=== PATIENT | female | born 1985 | race Caucasian/White ===

== ENCOUNTER 2016-03-28 07:10 | Inpatient (IN) | payer OTHER ==
[2016-03-28] MEDS ORDERED: OXYTOCIN/DEXTROSE 5%-WATER 30 UNITS/500 ML BAG IV ONE (08:27)
[2016-03-28] MEDS ORDERED: RINGERS SOLUTION,LACTATED 1,000 ML IV ONE (08:27)
[2016-03-28] MEDS ORDERED: LIDOCAINE HCL 50 ML VIAL PERI PRN (08:27)
[2016-03-28] MEDS: RINGERS SOLUTION,LACTATED 1,000 ML IV PRN ×2 (09:05→20:00)
--- NOTE | 2016-03-28 11:31 | PN ---
Progess Note - Interim Narrative: 03/28/16 11:28 Subjective-starting to feel her contractions Objective- SVE- /-2, amniotomy performed with clear fluid FHTs- 130s, moderate variability, no decelerations, accelerations [place]- every 2 minutes Assessment and plan- Labor-induction with Pitocin with amniotomy heart tones-Category 1 GBS status-negative Continue current plan of care.
[2016-03-28] MEDS ORDERED: fentaNYL CITRATE/PF 50 MCG/ML AMPUL IT SCH (11:45)
--- NOTE | 2016-03-28 12:16 | OR ---
Anesthesia Pre Procedure Eval Date of Service: 03/28/16 Pre Procedure Evaluation: Anesthesia Pre Procedure Evaluation DATE: 03/28/2016 TIME: 1140 INDICATIONS: Active labor, labor pain PAST MEDICAL HISTORY: Multipara patient in active labor requesting labor analgesia. The patient is at 4 cm dilatation and membranes are ruptured. EXAM: Heart regular; lungs clear ASSESSMENT OF MEDICAL STATUS: Appropriate candidate for labor analgesia PLANNED PROCEDURE: Combination spinal epidural for labor analgesia Home Medications: HOME MEDICATIONS Metformin HCl 500 mg PO BID 03/28/16 [Last Taken Unknown] Gll996/FA/Omega3/Dha/Fish Oil [ Gummies] 1 each PO DAILY 03/28/16 [Last Taken Unknown] Valacyclovir HCl [Valtrex] 1,000 mg PO DAILY 03/28/16 [Last Taken Unknown]
--- NOTE | 2016-03-28 12:18 | OR ---
Anesthesia Procedure Note - Anesthesia Procedure Note Date of Service: 03/28/16 Narrative: 03/28/16 12:16 ANESTHESIA PROCEDURE NOTE Date of Procedure: 03/28/2016 Time of procedure: 1140. Performed by: VY Louise CRNA, MSN Cane Splicer: Faiza Rivera RN. Preprocedure diagnosis: Active labor, labor pain. Post procedure diagnosis: Same. Procedure: Labor Epidural Placement L3 4. Indications: Labor pain. Findings: See below. Details of the procedure: The patient was placed on the side of the bed in sitting position. The patient was prepped with DuraPrep and draped in a sterile fashion. Lidocaine 1% was infiltrated to the skin and subcutaneous tissues at the level of the L3 4 interspace. The epidural space was identified using a 18-gauge Tuohy needle with [id number] technique. Fentanyl 20 g was given intrathecally the intrathecal needle was then removed and the epidural catheter was threaded approximately 4 cm, the epidural needle was then removed, and after careful aspiration 3 mL of 1.5% lidocaine with 1-200,000 epinephrine was injected without change in maternal heart rate or sensorium. The catheter was then taped in place. EBL: Minimal. Fluids: N/A. Specimen: N/A. Post procedure condition: The patient tolerated the procedure well with good relief. No complications were noted. Thank you for this consultation. Junior Lema CRNA, ARNP, MSN
[2016-03-28] MEDS ORDERED: BUPIVACAINE HCL/0.9 % NACL/PF 250 ML EP PRN ×2 (12:32→21:06)
[2016-03-28] MEDS: BUPIVACAINE HCL/0.9 % NACL/PF 250 ML EP PRN ×2 (12:43→21:10)
--- NOTE | 2016-03-28 18:18 | PN ---
Progess Note - Interim Narrative: 03/28/16 18:16 Subjective-patient now comfortable after 2 boluses with her epidural feels pressure in the lower abdomen and back pain Objective- SVE- 7-/-2, [place] balloon below head and this was advanced above his head with good return of urine FHTs- 140s, moderate variability, accelerations, no decelerations [place]- every 2-3 minutes Assessment and plan- Labor-induction with Pitocin and amniotomy heart tones-Category 1 GBS status-negative Previous gestational diabetes: Blood sugars all within normal limits, continue to monitor closely Continue current plan of care.
--- NOTE | 2016-03-29 00:31 | PN ---
Progess Note - Interim Narrative: 03/29/16 00:23 Subjective- feels pressure and back pain, epidural working from lower abdomen down Objective- SVE- anterior/right lip/95/0 FHTs- 145's, mod nick, no decels, + accels [place]- every 2-3 min Assessment and plan- Labor- induction with Pitocin, Amniotomy, protracted labor, small cervical lip remains with pushing and reduces, baby descends to +1, but then returns to original station, trial of tummy time and increase pitocin, then will try pushing again LGA-assessed weight smaller then last baby, ~8.5 lbs, will have a low threshold for section and will not attempt operative vaginal delivery heart tones-Category I GBS status- negative Pre-gestational DM-BS all WNL, continue to monitor 03/29/16 00:28
[2016-03-29] MEDS ORDERED: ONDANSETRON HCL/PF 2 MG/ML VIAL IV ONE ×2 (02:40→02:43)
[2016-03-29] MEDS ORDERED: BISACODYL 10 MG SUPP.RECT RC PRN (02:43)
[2016-03-29] MEDS ORDERED: OXYTOCIN/DEXTROSE 5%-WATER 30 UNITS/500 ML BAG IV ONE (02:43)
[2016-03-29] MEDS ORDERED: SENNOSIDES 8.6 MG TABLET PO PRN (02:43)
[2016-03-29] MEDS ORDERED: BENZOCAINE/MENTHOL 81 SPRAY CAN TP PRN (02:43)
[2016-03-29] MEDS ORDERED: oxyCODONE HCL/ACETAMINOPHEN 1 TAB TABLET PO PRN ×2 (02:43)
[2016-03-29] MEDS ORDERED: GLYCERIN/WITCH HAZEL LEAF 40 APPL BOX TP PRN (02:43)
--- NOTE | 2016-03-29 03:01 | OR ---
Operative Report - Dictated Report Narrative: Spontaneous Vaginal Delivery with 50 second shoulder dystocia Viable male delivered at 0222. She pushed for approximately 1.5 hours with good descent with the first push and then baby would send back to 0 station in between contractions. She spontaneously pushed to +3 station and with tug-of-war she pushed to . After delivery of the head in direct OA presentation a loose nuchal cord was noted and this was reduced. The head and chin were tightly applied to the perineum. Gentle downward traction did not deliver the anterior shoulder. Trice maneuver was then performed and the shoulder again did not deliver. The shoulder was then palpated and they were noted to be transverse Wood screw maneuver was then performed and the shoulder easily rotated to anterior posterior position. Suprapubic pressure was then applied along with Trice maneuver and gentle downward traction on shoulder delivered the left anterior shoulder without difficulty followed by the posterior shoulder and the remainder of the baby. The babies was placed on the maternal abdomen and dried and stimulated. The cord was then clamped and cut at approximately 30 seconds and the baby taken to the warmer. Apgars were 7 at 1 minute and 8 at 5 minutes. Weight: 8 pounds 10.6 ounces or 3931 g Placenta was delivered spontaneously and intact. No lacerations were noted. Estimated blood loss: 200 ml Mother and baby tolerated delivery well.
--- NOTE | 2016-03-29 03:03 | OR ---
History for MU Definition: * The number of deliveries resulting in a live the patient experienced prior to current hospitalization * The previous delivery of live twins or any live multiple gestation is considered one live event. *If primagravida or nulliparous is documented select zero for the number of previous live births. Live Events: 2
[2016-03-29] MEDS: IBUPROFEN 800 MG TABLET PO PRN ×3 (03:19→21:32)
--- NOTE | 2016-03-29 10:52 | PN ---
Progess Note - Interim Narrative: 03/29/16 10:52 progress note Subjective: The patient is doing well. She is ambulating, voiding, tolerating by mouth. She has minimal pain and moderate lochia. Objective: General: No acute distress Abdomen: Soft, nontender, fundus is firm just below the umbilicus Extremities: minimal edema, nontender to palpation Assessment and plan: day 0 Feeding: Breast Pain: Controlled with by mouth medication Routine care.
[2016-03-29] MEDS: DOCUSATE SODIUM 100 MG CAPSULE PO SCH ×2 (11:28→21:32)
[2016-03-29] MEDS ORDERED: RHO(D) IMMUNE GLOBULIN 300 MCG DISP.SYRIN IM ONE (21:39)
[2016-03-30] MEDS: IBUPROFEN 800 MG TABLET PO PRN (03:41)
[2016-03-30] MEDS: DOCUSATE SODIUM 100 MG CAPSULE PO SCH (08:47)
[2016-03-30 11:36] VITALS: BP 127/83
--- NOTE | 2016-03-30 12:46 | PN ---
Progess Note - Interim Narrative: 03/30/16 12:45 progress note Subjective: The patient is doing well. She is ambulating, voiding, tolerating by mouth. She has minimal pain and moderate lochia. Objective: General: No acute distress Abdomen: Soft, nontender, fundus is firm just below the umbilicus Extremities: minimal edema, nontender to palpation Assessment and plan: day 1 Feeding: Breast Pain: Controlled with by mouth medication control: Mini pill Routine care.
== END 2016-03-30 17:30 | disposition home or self-care (01) | DRG 774 ==
LOC: OB 07:10 → MS 03-30 13:01
PROVIDERS: ADMIT Obstetrics & Gynecology Gynecologic Oncology; ATTEND Obstetrics & Gynecology Gynecologic Oncology
PROC: 10E0XZZ Delivery of Products of Conception, External Approach (ICD-10-PCS; principal; 2016-03-29)
PROC: 4A1HXCZ Monitoring of Products of Conception, Cardiac Rate, External Approach (ICD-10-PCS; 2016-03-29)
PROC: 10907ZC Drainage of Amniotic Fluid, Therapeutic from Products of Conception, Via Natural or Artificial Opening (ICD-10-PCS; 2016-03-29)
PROC: 3E033VJ Introduction of Other Hormone into Peripheral Vein, Percutaneous Approach (ICD-10-PCS; 2016-03-29)
PROC: 3E0S3CZ (ICD-10-PCS; 2016-03-29)
DX: O24.425 Gestational diabetes mellitus in childbirth, controlled by oral hypoglycemic drugs (principal); O98.32 Other infections with a predominantly sexual mode of transmission complicating childbirth; O66.0 Obstructed labor due to shoulder dystocia; O69.81X0 Labor and delivery complicated by cord around neck, without compression, not applicable or unspecified; A60.04 Herpesviral vulvovaginitis; Z79.899 Other long term (current) drug therapy; Z3A.39 39 weeks gestation of pregnancy; Z37.0 Single live birth
CPT/HCPCS: 59025; 59400; 85460; J2790

== ENCOUNTER 2018-06-26 11:25 | Inpatient (IN) ==
[2018-06-26 12:21] LABS: Hematocrit 35.8 % (37.0-47.0); Hemoglobin 11.8 gm/dL (12.5-16.0); Mean Cell Volume 90.2 fl (78-100); Mean Corpuscular Hemoglobin 29.7 pg (27-31); Mean Platelet Volume 9.9 fl (8-12.5); Neutrophil # 7.4 K/mm3 (1.3-6.0); Neutrophil % 70.8 % (42-75.0); Platelet Count 208 K/mm3 (150-450); Red Blood Count 3.97 M/mm3 (4.2-5.4); Red Cell Distribution Width 12.6 % (11.5-14.0); White Blood Count 10.4 K/mm3 (4.0-10.5)
[2018-06-26 12:28] LABS: Albumin * 2.6 gm/dl (3.4-5.0); BUN/Creatinine Ratio 14.8 (9.0-21.6); Bilirubin, Total 0.3 mg/dL (0.0-1.1); Ca. Corrected For Albumin 9.2 mg/dL (8.4-10.2); Calcium * 8.4 mg/dL (7.9-10.9); Carbon Dioxide 23.6 mmol/L (24-32.6); Potassium 3.6 mmol/L (3.4-4.6); Total Protein 6.8 gm/dL (6.2-8.2)
[2018-06-26 12:49] LABS: Random Urine Total Protein 7.1 mg/dL (0-12)
[2018-06-26] MEDS ORDERED: OXYTOCIN/DEXTROSE 5%-WATER 30 UNITS/500 ML BAG IV ONE (13:56)
[2018-06-26] MEDS ORDERED: RINGER'S SOLUTION,LACTATED 1,000 ML IV ONE (13:56)
[2018-06-26] MEDS ORDERED: PENICILLIN G POTASSIUM 5 MILLIONUNT in DEXTROSE 5 % IN WATER 100 ML IV ONE ×2 (13:56)
[2018-06-26] MEDS ORDERED: DEXTROSE 5%-LACTATED RINGERS 1,000 ML IV PRN (13:56)
[2018-06-26 15:29] LABS: Cocaine Ur Negative (NEGATIVE); Urine Barbiturate Negative (NEGATIVE); Urine Benzodiazepines Negative (NEGATIVE); Urine Opiates Negative (NEGATIVE); Urine PCP Negative (NEGATIVE); Urine THC Negative (NEGATIVE)
[2018-06-26] MEDS: PENICILLIN G POTASSIUM 2.5 MILLIONUNT in DEXTROSE 5 % IN WATER 100 ML IV SCH ×4 (17:52→20:05)
--- NOTE | 2018-06-26 18:09 | HP ---
Chief Complaint - Chief Complaint Date of Service: 06/26/18 Time of Service: 18:09 Chief Complaint: contractions, elevated blood pressures History of Present Illness: 32 yo at 38 wks presents to L&D complaining of contractions of incre asing frequency and intensity since around 0400 this am. This complicated by anemia, DM - oral agent controlled, HSV- no outbreaks, h/o MRSA, h/o shoulder dystocia, CHTN, GBS carrier, and obesity. 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 3929g - <50sec with no complications HSV antigen DIF positive (Chronic) History of gestational diabetes (Chronic) Amenorrhea Onset Date: 03/14/14 Anemia Onset Date: 04/17/18 Dry scalp Onset Date: 04/29/14 Possible psoriasis. Trial w/steroid oil. Hirsutism Onset Date: 03/15/14 Hypertension Onset Date: 04/29/14 Appears more diastolic which could be a sleep related issue. Trial wit SR kit first (sample given). If not improved, consider atenolol. Irregular periods Onset Date: 03/14/14 Obesity Onset Date: Unknown PCOS (polycystic ovarian syndrome) Onset Date: 03/15/14 Pregestational diabetes mellitus, modified White class B Onset Date: 02/25/16 Snoring Onset Date: 04/29/14 Trial w/SR kit. Improving this could help the HTN. Wears glasses Onset Date: Unknown Ectopic Onset Date: 07/29/17 w/methotrexate x1 dose Gestational diabetes Onset Date: ~2015 Large for gestational age fetus affecting management of mother Onset Date: 03/02/16 Large for gestational age fetus affecting management of mother Onset Date: 03/02/16 Genital herpes in women Onset Date: Unknown Surgical History: Surgical History (Last Reviewed 06/26/18 @ 18:32 by Darrell Ramos DO) No pertinent past surgical history Family History: Family History (Last Reviewed 06/26/18 @ 18:32 by Darrell Ramos DO) Brother Lupus Father Hypertension Skin cancer Grandfather Skin cancer Colon polyps Grandfather Cerebral aneurysm Grandmother CAD (coronary artery disease) w/stent Grandmother History of Blood Clots Glaucoma Mother Cervical cancer Benign tumor Left side of head Sister Hypertension Uncle Colon cancer Social History: Preferred Language Turkmen Smoking Status Never smoker Abuse History No History of abuse Psych History No pertinent hx (Last Updated 06/26/18 @ 11:23 by Darrell Ramos DO) No Social History Section defined Review Of Systems (GEN) - Review of Systems Generalized/Overall Review: Present: No Symptoms Reported EENTM: Present: No Symptoms Reported Respiratory: Present: No Symptoms Reported Cardiac: Present: No Symptoms Reported Abdominal: Present: No Symptoms Reported Genitourinary: Present: No Symptoms Reported Musculoskeletal: Present: No Symptoms Reported Neurological: Present: No Symptoms Reported Skin: Present: No Symptoms Reported Endocrine: Present: No Symptoms Reported Allergies/Adverse Reactions: Allergies Allergy/AdvReac Type Severity Reaction Status Date / Time No Known Allergies Allergy Verified 06/26/18 10:49 Home Medications: HOME MEDICATIONS Ksl446/FA/Omega3/Dha/Fish Oil [ Gummies] 1 ea PO DAILY 03/28/16 [Last Taken Unknown] folic acid 800 mcg tablet 800 mcg PO DAILY 11/08/17 [Last Taken Unknown] acetone (urine) test strips See Dose Instructions .ROUTE .MEDSUPPLY #50 ea 01/18/18 [Last Taken Unknown] blood-glucose meter kit See Dose Instructions .ROUTE .MEDSUPPLY #1 ea 01/18/18 [Last Taken Unknown] lancets See Dose Instructions .ROUTE .MEDSUPPLY #100 ea 01/18/18 [Last Taken Unknown] blood sugar diagnostic strips See Dose Instructions .ROUTE .MEDSUPPLY #100 ea 02/14/18 [Last Taken Unknown] ferrous sulfate 325 mg (65 mg iron) tablet 325 mg PO DAILY #30 tab 04/17/18 [Last Taken Unknown] ascorbic acid (vitamin C) 500 mg tablet 500 mg PO DAILY 05/02/18 [Last Taken Unknown] valacyclovir 1 gram tablet 1,000 mg PO DAILY #30 tab 05/29/18 [Last Taken Unknown] metFORMIN HCL [Metformin HCl] 500 mg PO DAILY 06/26/18 [Last Taken Unknown] Exam - Exam Vital Signs: Vital Signs - Last Taken Temp 36.8 C 06/26/18 12:11 Pulse 88 06/26/18 12:11 Resp 18 06/26/18 12:11 BP 142/91 H 06/26/18 12:11 Pulse Ox 97 06/26/18 12:11 Constitutional: Present: Alert, Oriented x3, Cooperative, No distress ENT Exam: Present: hearing grossly normal Breasts: Present: Exam deferred Respiratory: Present: lungs clear, no respiratory distress Cardiovascular/Chest: Present: regular rate, rhythm, no edema Abdomen: Present: soft, no rebound tenderness, other - gravid /Rectal: Present: Other - 3/60/-2 Extremity: Present: no pedal edema, no calf tenderness Skin Exam: Present: normal color, warm/dry, skin rash Neurologic: Present: alert, normal mood/affect, oriented x 3 Appearance: Present: appropriate appearance, appropriate insight Eye contact: Present: cooperative, good eye contact Thoughts: Present: normal thought pattern, no apparent hallucination Diagnostic Studies: Abnormal Lab Results 06/26/18 06/26/18 06/26/18 Range/Units 12:00 12:00 12:00 RBC 3.97 L (4.2-5.4) M/mm3 Hgb 11.8 L (12.5-16.0) gm/dL Hct 35.8 L (37.0-47.0) % Immature Gran % (Auto) 0.70 H (0.001-0.429) % Immature Gran # (Auto) 0.07 H (0.000-0.0310) K/mm3 Neutrophils # 7.4 H (1.3-6.0) K/mm3 Carbon Dioxide 23.6 L (24-32.6) mmol/L Anion Gap 15.0 H (6.8-13.8) mmol/L Est GFR (Non-Af Amer) 140 H (60-130) mL/min ALT 13 L (19-67) U/L Albumin 2.6 L (3.4-5.0) gm/dl Ur Random Creatinine 27.3 L (60-200) mg/dL U Pre[place] Prot/Creat Ratio 260 H (0-199) mg/gm Laboratory Results WBC 10.4 K/mm3 (4.0-10.5) 06/26/18 12:00 RBC 3.97 M/mm3 (4.2-5.4) L 06/26/18 12:00 Hgb 11.8 gm/dL (12.5-16.0) L 06/26/18 12:00 Hct 35.8 % (37.0-47.0) L 06/26/18 12:00 MCV 90.2 fl (78-100) 06/26/18 12:00 MCH 29.7 pg (27-31) 06/26/18 12:00 MCHC 33.0 g/dl (32-36) 06/26/18 12:00 RDW 12.6 % (11.5-14.0) 06/26/18 12:00 Plt Count 208 K/mm3 (150-450) 06/26/18 12:00 MPV 9.9 fl (8-12.5) 06/26/18 12:00 Immature Gran % (Auto) 0.70 % (0.001-0.429) H 06/26/18 12:00 Immature Gran # (Auto) 0.07 K/mm3 (0.000-0.0310) H 06/26/18 12:00 Neutrophils % 70.8 % (42-75.0) 06/26/18 12:00 Lymphocytes % 21.7 % (20-51) 06/26/18 12:00 Monocytes % 6.2 % (0.0-9) 06/26/18 12:00 Eosinophils % 0.3 % (0.0-3.0) 06/26/18 12:00 Basophils % 0.3 % (0.0-1.0) 06/26/18 12:00 Nucleated RBC % 0.0 k/mm3 (0-1) 06/26/18 12:00 Neutrophils # 7.4 K/mm3 (1.3-6.0) H 06/26/18 12:00 Lymphocytes # 2.25 k/mm3 (1.5-3.5) 06/26/18 12:00 Monocytes # 0.6 k/mm3 (0.0-1.0) 06/26/18 12:00 Eosinophils # 0.0 k/mm3 (0.0-0.7) 06/26/18 12:00 Absolute Basophils 0.0 k/mm3 (0.0-0.1) 06/26/18 12:00 Sodium 137 mmol/L (132-142) 06/26/18 12:00 Plasma Sodium 137 mmol/L (130-142) 06/26/18 12:00 Potassium 3.6 mmol/L (3.4-4.6) 06/26/18 12:00 Chloride 102 mmol/L (97-106) 06/26/18 12:00 Carbon Dioxide 23.6 mmol/L (24-32.6) L 06/26/18 12:00 Anion Gap 15.0 mmol/L (6.8-13.8) H 06/26/18 12:00 BUN 8 mg/dL (3-23) 06/26/18 12:00 Creatinine 0.54 mg/dL (0.4-1.4) 06/26/18 12:00 Est GFR (Non-Af Amer) 140 mL/min (60-130) H 06/26/18 12:00 BUN/Creatinine Ratio 14.8 (9.0-21.6) 06/26/18 12:00 Random Glucose 78 mg/dL (70-110) 06/26/18 12:00 Calcium 8.4 mg/dL (7.9-10.9) 06/26/18 12:00 Calcium Adj for Albumin 9.2 mg/dL (8.4-10.2) 06/26/18 12:00 Total Bilirubin 0.3 mg/dL (0.0-1.1) 06/26/18 12:00 AST 16 U/L (0-48) 06/26/18 12:00 ALT 13 U/L (19-67) L 06/26/18 12:00 Alkaline Phosphatase 129 U/L (50-170) 06/26/18 12:00 Total Protein 6.8 gm/dL (6.2-8.2) 06/26/18 12:00 Albumin 2.6 gm/dl (3.4-5.0) L 06/26/18 12:00 Ur Random Creatinine 27.3 mg/dL (60-200) L 06/26/18 12:00 U Random Total Protein 7.1 mg/dL (0-12) 06/26/18 12:00 U Preemption Prot/Creat Ratio 260 mg/gm (0-199) H 06/26/18 12:00 Urine Opiates Screen Negative (NEGATIVE) 06/26/18 12:00 Barbiturate Screen Negative (NEGATIVE) 06/26/18 12:00 Ur Phencyclidine Scrn Negative (NEGATIVE) 06/26/18 12:00 Urine Amphetamine Negative (NEGATIVE) 06/26/18 12:00 U Benzodiazepines Scrn Negative (NEGATIVE) 06/26/18 12:00 Urine Cocaine Screen Negative (NEGATIVE) 06/26/18 12:00 Urine Marijuana (THC) Negative (NEGATIVE) 06/26/18 12:00
--- NOTE | 2018-06-26 18:13 | PN ---
Progess Note - Interim Date: 06/26/18 Time: 18:10 Narrative: 06/26/18 18:10 Patient becoming more uncomfortable with contractions Vital signs stable. BS 90 Receiving second dose of IV penicillin FHT: 140 baseline, [reassuring] Contractions q 2-4 min Cervix: 4/60/-3, AROM-clear Impression: Intrauterine at 38 weeks in early labor with chronic hypertension and diabetes on oral medication for control. GBS carrier Plan: We'll add Pitocin if necessary. Epidural when necessary. Preeclampsia precautions. Continue monitoring blood sugars every 2 hours throughout labor
[2018-06-26] MEDS ORDERED: BUPIVACAINE HCL/0.9 % NACL/PF 250 ML EP PRN (18:31)
[2018-06-26] MEDS ORDERED: NALOXONE HCL 1 MG/1 ML SYRG IV PRN (18:31)
[2018-06-26] MEDS ORDERED: ONDANSETRON HCL/PF 2 MG/ML VIAL IV PRN (18:31)
[2018-06-26] MEDS ORDERED: LIDOCAINE HCL/EPINEPHRINE 20 ML VIAL IJ ONE (18:32)
[2018-06-26] MEDS ORDERED: fentaNYL CITRATE/PF 50 MCG/ML AMPUL IT SCH (18:45)
--- NOTE | 2018-06-26 20:21 | ANES ---
Anesthesia Procedure Note Procedure Note: ANESTHESIA PROCEDURE NOTE Date of Procedure: 06/26/2018 Time of procedure: 1950. Performed by: Milton Lopez CRNA Engine Dispatcher: None. Preprocedure diagnosis: Active labor. Post procedure diagnosis: Same. Procedure: Insertion of labor epidural. Indications: The patient is a 32-year-old multi female in active labor requesting labor epidural for pain management. Findings: See below. Details of the procedure: The patient was placed in a sitting position. Back was prepped with DuraPrep. Patient was then draped in a sterile fashion. Lidocaine 1% was infiltrated to the skin and subcutaneous tissues at the level of the L3 4 interspace. The epidural space was identified using a 18-gauge Tuohy needle with [id number] technique. 20 mcg fentanyl was given intrathecally using a 27 ga. spinal needle. Epidural catheter was inserted without difficulty. Negative test dose was elicited using 3 mL of 2% preservative-free lidocaine plus epinephrine 1 200,000. The epidural catheter was then taped and secured in place. EBL: Minimal. Fluids: N/A. Specimen: N/A. Post procedure condition: The patient tolerated the procedure well. No complications were noted. Thank you for this consultation. Jeffrey CRNA
--- NOTE | 2018-06-26 20:23 | ANES ---
Post Anesthesia Discharge - Transfer of Care Transfer of Care handoff given to nurse: Yes - Care transferred to OB RN
--- NOTE | 2018-06-26 20:23 | ANES ---
Anesthesia Pre Procedure Eval Vitals/Labs: Last Vital Signs Temp 36.8 C 06/26/18 12:11 Pulse 88 06/26/18 12:11 Resp 18 06/26/18 12:11 BP 142/91 H 06/26/18 12:11 Pulse Ox 97 06/26/18 12:11 HOME MEDICATIONS RX: Aoy351/FA/Omega3/Dha/Fish Oil [ Gummies] 1 ea PO DAILY 03/28/16 [Last Taken Unknown] folic acid 800 mcg tablet 800 mcg PO DAILY 11/08/17 [Last Taken Unknown] acetone (urine) test strips See Dose Instructions .ROUTE .MEDSUPPLY #50 ea 01/18/18 [Last Taken Unknown] blood-glucose meter kit See Dose Instructions .ROUTE .MEDSUPPLY #1 ea 01/18/18 [Last Taken Unknown] lancets See Dose Instructions .ROUTE .MEDSUPPLY #100 ea 01/18/18 [Last Taken Unknown] blood sugar diagnostic strips See Dose Instructions .ROUTE .MEDSUPPLY #100 ea 02/14/18 [Last Taken Unknown] ferrous sulfate 325 mg (65 mg iron) tablet 325 mg PO DAILY #30 tab 04/17/18 [Last Taken Unknown] ascorbic acid (vitamin C) 500 mg tablet 500 mg PO DAILY 05/02/18 [Last Taken Unknown] valacyclovir 1 gram tablet 1,000 mg PO DAILY #30 tab 05/29/18 [Last Taken Unknown] RX: metFORMIN HCL [Metformin HCl] 500 mg PO DAILY 06/26/18 [Last Taken Unknown] Allergies/Adverse Reactions: Allergies Allergy/AdvReac Type Severity Reaction Status Date / Time No Known Allergies Allergy Verified 06/26/18 10:49 - Planned Procedure Planned Procedure: LABOR Medication List Reviewed:: Yes Allergies Verified: Yes Medical History (Last Reviewed 06/26/18 @ 20:22 by Abdelrahman Lopez CRNA) Diabetes (Acute) Onset Date: ~2017 MRSA (methicillin resistant staph aureus) culture positive (Acute) Onset Date: 12/19/17 urine PCOS (polycystic ovarian syndrome) (Chronic) oligomenorrhea, insulin resistance, hirsutism, HTN Hirsutism (Chronic) Severe obesity (BMI 35.0-39.9) with comorbidity (Chronic) Hypertension (Chronic) History of ectopic (Chronic) 06/12 tx'd with methotrexate History of shoulder dystocia in prior (Chronic) 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 3929g - <50sec with no complications HSV antigen DIF positive (Chronic) History of gestational diabetes (Chronic) Amenorrhea Onset Date: 03/14/14 Anemia Onset Date: 04/17/18 Dry scalp Onset Date: 04/29/14 Possible psoriasis. Trial w/steroid oil. Hirsutism Onset Date: 03/15/14 Hypertension Onset Date: 04/29/14 Appears more diastolic which could be a sleep related issue. Trial wit SR kit first (sample given). If not improved, consider atenolol. Irregular periods Onset Date: 03/14/14 Obesity Onset Date: Unknown PCOS (polycystic ovarian syndrome) Onset Date: 03/15/14 Pregestational diabetes mellitus, modified White class B Onset Date: 02/25/16 Snoring Onset Date: 04/29/14 Trial w/SR kit. Improving this could help the HTN. Wears glasses Onset Date: Unknown Ectopic Onset Date: 07/29/17 w/methotrexate x1 dose Gestational diabetes Onset Date: ~2015 Large for gestational age fetus affecting management of mother Onset Date: 03/02/16 Large for gestational age fetus affecting management of mother Onset Date: 03/02/16 Genital herpes in women Onset Date: Unknown Surgical History (Last Reviewed 06/26/18 @ 20:22 by Abdelrahman Lopez CRNA) No pertinent past surgical history Family History (Last Reviewed 06/26/18 @ 20:22 by Abdelrahman Lopez CRNA) Brother Lupus Father Hypertension Skin cancer Grandfather Skin cancer Colon polyps Grandfather Cerebral aneurysm Grandmother CAD (coronary artery disease) w/stent Grandmother History of Blood Clots Glaucoma Mother Cervical cancer Benign tumor Left side of head Sister Hypertension Uncle Colon cancer - Family Anesthesia History Family History:: no untoward family reactions to anesthesia - Airway/Neck/Teeth Teeth Condition: intact Neck Exam: full range of motion Mallampatti Score: 2 Thyromental (T-M) distance: > 6 cm Mandibulo Hyoid distance: > 3 cm - Respiratory Smoking Status: Never smoker Sleep Apnea currently treated: No Sleep Apnea by current assessment: No - Cardiovascular Tolerate Activity: Good - Anesthesia Assessment and Plan ASA Class: PS, II Anesthesia Type Plan: Epidural Planned difficult intubation/equipment available: No
--- NOTE | 2018-06-26 20:23 | ANES ---
Post Anesthesia Assessment - Vital Signs Vitals: Last Vital Signs Temp 36.8 C 06/26/18 12:11 Pulse 88 06/26/18 12:11 Resp 18 06/26/18 12:11 BP 142/91 H 06/26/18 12:11 Pulse Ox 97 06/26/18 12:11 Airway Patency: Normal - Mental Status Level Of Consciousness: Awake - Pain Level Pain Score: 2 - N/V Assessment Nausea/Vomiting Presence: None Dehydration:: No
--- NOTE | 2018-06-26 22:44 | PN ---
Progess Note - Interim Date: 06/26/18 Time: 22:41 Narrative: 06/26/18 22:41 Patient comfortable with epidural Vital signs stable BS 96 Pitocin at 8 mu/min. FHT: 140 baseline, reassuring Contractions q 1-4 min Cervix: 6/90/-2 Impression: Intrauterine at 38 weeks in labor. Chronic hypertension. Diabetes. GBS carrier-status post 3 doses of IV penicillin Plan: Increase Pitocin to 10 mU/m. Anticipate normal spontaneous vaginal delivery within the next few hours.
--- NOTE | 2018-06-27 01:31 | OR ---
Operative Report - Dictated Report Narrative: Delivery of viable female at 0102 on 06/27/2018 with Apgars 7 and 9, weighing 3390 g in YEHUDA position with nuchal cord 1 and moderate shoulder dystocia. Infant with delayed cry. Umbilical cord was cut within the first 30 seconds and patient was taken to warmer for stimulation and resuscitation. 2nd stage of labor: 17 min Head/body interval: 90 seconds Anesthesia: epidural Estimated weight: 7 pounds Diabetes: yes type: II - oral meds Attendants at : OB: Darrell Ramos, Ped: not present, Nurses: Sydnie Thompson and Mercedes Rivera Others: none Position of head at delivery: YEHUDA Right shoulder anterior Maneuvers used: Trice yes, Suprapubic pressure yes, Wood's screw yes, Delivery of posterior shoulder no, Arm sweep no, Episiotomy no, Other: None Description: Most of delivery of shoulder dystocia was due to interval of time between contractions. The anterior shoulder cleared with Trice maneuver and suprapubic pressure and aid with Wood's screw maneuver. moving all extremities at yes, Injuries noted: none Cord gases not obtained Mother's condition: no lacerations EBL: Less than 50 mL Mother informed of dystocia and potential sequelae. Recommendations for future pregnancies: Avoid vaginal delivery of infant as large as this one. History for MU Definition: * The number of deliveries resulting in a live the patient experienced prior to current hospitalization * The previous delivery of live twins or any live multiple gestation is considered one live event. *If primagravida or nulliparous is documented select zero for the number of previous live births. Live Events: 3
[2018-06-27] MEDS ORDERED: OXYTOCIN/DEXTROSE 5%-WATER 30 UNITS/500 ML BAG IV ONE (01:34)
[2018-06-27] MEDS ORDERED: GLYCERIN/WITCH HAZEL LEAF 40 APPL BOX TP PRN (01:34)
[2018-06-27] MEDS ORDERED: HYDROCORTISONE 30 APPL TUBE TP PRN (01:34)
[2018-06-27] MEDS ORDERED: BISACODYL 10 MG SUPP.RECT RC PRN (01:34)
[2018-06-27] MEDS ORDERED: oxyCODONE HCL/ACETAMINOPHEN 1 TAB TABLET PO PRN ×2 (01:34)
[2018-06-27] MEDS ORDERED: IBUPROFEN 800 MG TABLET PO PRN (01:34)
[2018-06-27] MEDS ORDERED: BENZOCAINE/MENTHOL 81 SPRAY CAN TP PRN (01:34)
[2018-06-27] MEDS ORDERED: SENNOSIDES 8.6 MG TABLET PO PRN (01:34)
[2018-06-27] MEDS: FERROUS SULFATE 325 MG TABLET PO SCH (08:10)
[2018-06-27] MEDS: PRENATAL VITS96/IRON FUM/FOLIC 1 TAB TABLET PO SCH (08:10)
[2018-06-27] MEDS: DOCUSATE SODIUM 100 MG CAPSULE PO SCH ×2 (08:10→21:13)
[2018-06-27] MEDS ORDERED: RHO(D) IMMUNE GLOBULIN 1,500 UNIT SYRINGE IM ONE (08:11)
[2018-06-27] MEDS: IBUPROFEN 200 MG TABLET PO PRN (16:13)
[2018-06-28] MEDS: FERROUS SULFATE 325 MG TABLET PO SCH (09:35)
[2018-06-28] MEDS: PRENATAL VITS96/IRON FUM/FOLIC 1 TAB TABLET PO SCH (09:35)
[2018-06-28] MEDS: DOCUSATE SODIUM 100 MG CAPSULE PO SCH (09:35)
[2018-06-28] MEDS: IBUPROFEN 200 MG TABLET PO PRN (10:56)
--- NOTE | 2018-06-28 13:06 | PN ---
Subjective - Date and Time Seen Date: 06/28/18 Time: 13:05 Objective - Vitals Vitals: Last Vital Signs Temp 36.8 C 06/28/18 11:02 Pulse 91 06/28/18 11:02 Resp 18 06/28/18 11:02 BP 142/87 H 06/28/18 11:02 Pulse Ox 97 06/28/18 11:02 Patient denies complaints. Patient desires early discharge. Fasting blood sugar 82, 1 hour postprandial 142 Lochia wnl Abdomen - soft, nontender Uterus - firm, at umbilicus - 1 No calf tenderness Impression: day #1 - s/p spontaneous vaginal delivery. Chronic hypertension-stable. Diabetes-stable Plan: Continue routine care. Discharge instructions given. Will discharge early if pediatricians allow baby to be discharged early.
[2018-06-29] MEDS: DOCUSATE SODIUM 100 MG CAPSULE PO SCH ×2 (00:59→08:59)
--- NOTE | 2018-06-29 07:41 | PN ---
Subjective - Date and Time Seen Date: 06/29/18 Time: 07:41 Objective - Vitals Vitals: Last Vital Signs Temp 36.8 C 06/28/18 11:02 Pulse 88 06/29/18 01:09 Resp 16 06/28/18 20:25 BP 140/78 H 06/29/18 01:09 Pulse Ox 99 06/28/18 20:25 Patient denies complaints. Lochia wnl Abdomen - soft, nontender Uterus - firm, at umbilicus - 2 No calf tenderness Impression: day #2 - s/p spontaneous vaginal delivery. Plan: Routine discharge instructions
[2018-06-29] MEDS: PRENATAL VITS96/IRON FUM/FOLIC 1 TAB TABLET PO SCH (08:59)
[2018-06-29] MEDS: FERROUS SULFATE 325 MG TABLET PO SCH (08:59)
[2018-06-29] MEDS: IBUPROFEN 200 MG TABLET PO PRN (09:01)
[2018-06-29] MEDS ORDERED: NEOMYCIN/BACITRACIN/POLYMYXINB 15 APPL TUBE TP PRN (09:15)
[2018-06-29] MEDS ORDERED: HYDROCORTISONE 30 APPL TUBE TP PRN (09:20)
[2018-06-29] MEDS ORDERED: CLOTRIMAZOLE 15 APPL TUBE TP PRN (09:22)
[2018-06-29 11:31] VITALS: BP 141/89
== END 2018-06-29 14:15 | disposition home or self-care (01) | DRG 805 ==
LOC: OBCLINIC 11:25 → OB 13:53
PROVIDERS: ADMIT Obstetrics & Gynecology; ATTEND Obstetrics & Gynecology
CPT/HCPCS: 36415; 59025; 80053; 80307; 82570; 84155; 84156; 85025; 85460; 88307; J2790